=== PATIENT | male | born 1965 | race Caucasian/White ===

== ENCOUNTER 2018-09-14 15:00 | Outpatient (CLI) | payer OTHER | END 2018-09-14 15:13 | disposition home or self-care (01) | LOC: LAB 15:00 | DX: E78.49 Other hyperlipidemia (principal) ==

== ENCOUNTER → 2018-11-22 12:07 | Outpatient (CLI) | payer OTHER | END | disposition home or self-care (01) | LOC: LAB 11-21 19:55 | DX: I10 Essential (primary) hypertension (principal); E13.21 Other specified diabetes mellitus with diabetic nephropathy ==

== ENCOUNTER 2019-02-20 07:31 | Outpatient (CLI) | payer OTHER | END 2019-02-20 15:54 | disposition home or self-care (01) | LOC: LAB 07:31 | DX: I11.9 Hypertensive heart disease without heart failure (principal); E11.9 Type 2 diabetes mellitus without complications ==

== ENCOUNTER 2019-04-03 07:54 | Outpatient (CLI) | payer OTHER | END 2019-04-03 16:34 | disposition home or self-care (01) | LOC: LAB 07:54 | DX: I11.9 Hypertensive heart disease without heart failure (principal); R06.02 Shortness of breath; D50.8 Other iron deficiency anemias; E03.8 Other specified hypothyroidism; E78.2 Mixed hyperlipidemia; E56.8 Deficiency of other vitamins; N39.0 Urinary tract infection, site not specified; Z12.11 Encounter for screening for malignant neoplasm of colon; E55.9 Vitamin D deficiency, unspecified; N19 Unspecified kidney failure; E11.9 Type 2 diabetes mellitus without complications; R80.8 Other proteinuria; C18.0 Malignant neoplasm of cecum; K92.1 Melena ==

== ENCOUNTER 2019-08-06 09:10 | Outpatient (CLI) | payer OTHER | END 2019-08-06 14:35 | disposition home or self-care (01) | LOC: LAB 09:10 | DX: E13.69 Other specified diabetes mellitus with other specified complication (principal) ==

== ENCOUNTER 2020-01-15 08:08 | Outpatient (CLI) | payer OTHER | END 2020-01-15 09:29 | disposition home or self-care (01) | LOC: LAB 08:08 | DX: Z00.00 Encounter for general adult medical examination without abnormal findings (principal) ==

== ENCOUNTER 2020-03-25 08:05 | Outpatient (CLI) | payer OTHER | END 2020-03-25 13:39 | disposition home or self-care (01) | LOC: LAB 08:05 | PROVIDERS: ATTEND Anesthesiology | DX: E11.69 Type 2 diabetes mellitus with other specified complication (principal); Z13.89 Encounter for screening for other disorder ==

== ENCOUNTER 2020-07-01 15:54 | Outpatient (CLI) | payer OTHER | END 2020-07-01 15:55 | disposition home or self-care (01) | LOC: PPH VACUNA 15:54 | DX: Z23 Encounter for immunization (principal) ==

== ENCOUNTER → 2021-04-16 | Outpatient (CLI) | payer OTHER | END | disposition home or self-care (01) | LOC: LAB 10:48 | DX: Z20.828 Contact with and (suspected) exposure to other viral communicable diseases (principal) ==

== ENCOUNTER 2021-04-27 08:51 | Outpatient (CLI) | payer OTHER | END 2021-04-27 17:24 | disposition home or self-care (01) | LOC: LAB 08:51 | PROVIDERS: ATTEND Anesthesiology | DX: Z03.818 Encounter for observation for suspected exposure to other biological agents ruled out (principal) ==

== ENCOUNTER → 2021-05-02 11:25 | Outpatient (CLI) | payer OTHER | END | disposition home or self-care (01) | LOC: LAB 11:25 | PROVIDERS: ATTEND Anesthesiology | DX: Z03.818 Encounter for observation for suspected exposure to other biological agents ruled out (principal) ==

== ENCOUNTER 2021-06-16 08:00 | Outpatient (CLI) | payer OTHER | END 2021-06-16 08:30 | disposition home or self-care (01) | LOC: PPH VACUNA 08:00 | PROVIDERS: ATTEND Emergency Medicine Pediatric Emergency Medicine | DX: Z23 Encounter for immunization (principal) ==

== ENCOUNTER 2021-09-03 07:53 | Outpatient (CLI) | payer OTHER | END 2021-09-03 08:23 | disposition home or self-care (01) | LOC: LAB 07:53 | PROVIDERS: ATTEND Anesthesiology | DX: Z20.822 Contact with and (suspected) exposure to COVID-19 (principal) ==

== ENCOUNTER 2021-09-09 16:40 | Outpatient (CLI) | payer OTHER | END 2021-09-09 16:42 | disposition home or self-care (01) | LOC: LAB 16:40 | PROVIDERS: ATTEND Colon & Rectal Surgery | DX: Z20.822 Contact with and (suspected) exposure to COVID-19 (principal) ==

== ENCOUNTER 2021-09-12 10:33 | Outpatient (CLI) | payer OTHER | END 2021-09-12 10:50 | disposition home or self-care (01) | LOC: LAB 10:33 | PROVIDERS: ATTEND Colon & Rectal Surgery | DX: Z20.822 Contact with and (suspected) exposure to COVID-19 (principal) ==

== ENCOUNTER 2021-12-22 08:00 | Outpatient (CLI) | payer OTHER | END 2021-12-22 08:30 | disposition home or self-care (01) | LOC: PPH VACUNA 08:00 | PROVIDERS: ATTEND Emergency Medicine Pediatric Emergency Medicine | DX: Z23 Encounter for immunization (principal) ==

== ENCOUNTER 2022-05-25 08:00 | Outpatient (CLI) | payer OTHER | END 2022-05-25 08:05 | disposition home or self-care (01) | LOC: PPH VACUNA 08:00 | PROVIDERS: ATTEND Emergency Medicine Pediatric Emergency Medicine | DX: Z23 Encounter for immunization (principal) ==

== ENCOUNTER 2022-06-22 09:06 | Outpatient (CLI) | payer OTHER | END 2022-06-22 09:16 | disposition home or self-care (01) | LOC: PPH VACUNA 09:06 | PROVIDERS: ATTEND Emergency Medicine Pediatric Emergency Medicine | DX: Z23 Encounter for immunization (principal) ==

== ENCOUNTER 2022-10-25 08:19 | Outpatient (CLI) | payer OTHER | END 2022-10-25 08:27 | disposition home or self-care (01) | LOC: LAB 08:19 | PROVIDERS: ATTEND Anesthesiology | DX: R53.83 Other fatigue (principal); E78.5 Hyperlipidemia, unspecified; Z01.812 Encounter for preprocedural laboratory examination; E11.9 Type 2 diabetes mellitus without complications ==

== ENCOUNTER 2022-12-20 07:32 | Outpatient (CLI) | payer OTHER | END 2022-12-20 08:23 | disposition home or self-care (01) | LOC: LAB 07:32 | PROVIDERS: ATTEND Anesthesiology | DX: K74.00 Hepatic fibrosis, unspecified (principal); E11.9 Type 2 diabetes mellitus without complications ==

== ENCOUNTER 2022-12-27 07:38 | Outpatient (CLI) | payer OTHER | END 2022-12-27 08:03 | disposition home or self-care (01) | LOC: RAD 07:38 | PROVIDERS: ATTEND Anesthesiology | DX: S62.305D Unspecified fracture of fourth metacarpal bone, left hand, subsequent encounter for fracture with routine healing (principal) ==

== ENCOUNTER 2023-03-03 10:54 | Outpatient (CLI) | payer OTHER | END 2023-03-03 11:45 | disposition home or self-care (01) | LOC: LAB 10:54 | PROVIDERS: ATTEND Anesthesiology | DX: E08.9 Diabetes mellitus due to underlying condition without complications (principal); E78.5 Hyperlipidemia, unspecified; Z13.29 Encounter for screening for other suspected endocrine disorder; Z12.5 Encounter for screening for malignant neoplasm of prostate; Z13.0 Encounter for screening for diseases of the blood and blood-forming organs and certain disorders involving the immune mechanism ==

== ENCOUNTER 2023-03-07 09:50 | Outpatient (CLI) | payer OTHER | END 2023-03-07 09:58 | disposition home or self-care (01) | LOC: LAB 09:50 | DX: E11.9 Type 2 diabetes mellitus without complications (principal) ==

== ENCOUNTER 2023-05-16 08:20 | Outpatient (CLI) | payer OTHER | END 2023-05-16 14:20 | disposition home or self-care (01) | LOC: LAB 08:20 | PROVIDERS: ATTEND Anesthesiology | DX: E11.9 Type 2 diabetes mellitus without complications (principal) ==

== ENCOUNTER 2023-05-30 08:50 | Outpatient (CLI) | payer OTHER | END 2023-05-30 09:00 | disposition home or self-care (01) | LOC: PPH VACUNA 08:50 | PROVIDERS: ATTEND Emergency Medicine Pediatric Emergency Medicine | DX: Z23 Encounter for immunization (principal) ==

== ENCOUNTER 2023-11-11 09:19 | Outpatient (CLI) | payer OTHER | END 2023-11-11 09:34 | disposition home or self-care (01) | LOC: RAD 09:19 | PROVIDERS: ATTEND Anesthesiology Pain Medicine | DX: M48.02 Spinal stenosis, cervical region (principal); M54.6 Pain in thoracic spine ==

== ENCOUNTER 2023-12-08 08:33 | Outpatient (CLI) | payer OTHER ==
[2023-12-08 10:23] LABS: HEMATOCRIT 46.5 % (39.0-48.0); HEMOGLOBIN 16.1 g/dL (13-16.00); MEAN CELL VOLUME 86.1 fL (80.0-100.00); MEAN CORPUSCULAR HEMOGLOBIN 29.7 pg (27.00-32.0); MEAN CORPUSCULAR HGB CONC 34.5 g/dl (32.0-36.0); PLATELET COUNT 245 K/uL (150-450); RED CELL DISTRIBUTION WIDTH 13.7 % (11.5-14.5)
[2023-12-08 11:14] LABS: ALBUMIN 4.4 gm/dL (3.4-5.0); BILIRUBIN TOTAL 1.79 mg/dL (0.3-1.2); CALCIUM 9.4 mg/dL (8.5-10.1); CHOL HDL RATIO 2.5 (0-5.0); CREATININE SERUM 0.87 mg/dL (0.70-1.30); GFR 90.44; GLOBULINA 2.7 G/DL (2.4-3.5); POTASSIUM 3.98 mEq/L (3.5-5.1); TOTAL PROTEIN 7.1 gm/dL (6.4-8.2)
[2023-12-08 15:48] LABS: PROSTATIC SPECIFIC ANTIGEN 1.43 NG/ML (0.010-4.00); T4 TOTAL 12.18 UG/DL (4.5-12.1); TSH 1.54 uIU/mL (0.358-3.74)
== END 2023-12-08 14:19 | disposition home or self-care (01) ==
LOC: LAB 08:33
PROVIDERS: ATTEND Anesthesiology
DX: E11.11 Type 2 diabetes mellitus with ketoacidosis with coma (principal); Z01.89 Encounter for other specified special examinations

== ENCOUNTER 2024-06-21 11:50 | Outpatient (CLI) | payer OTHER | END 2024-06-21 12:00 | disposition home or self-care (01) | LOC: PPH VACUNA 11:50 | PROVIDERS: ATTEND Emergency Medicine Pediatric Emergency Medicine | DX: Z23 Encounter for immunization (principal) ==

== ENCOUNTER 2025-01-01 08:34 | Outpatient (CLI) | payer OTHER ==
[2025-01-01 09:50] LABS: PH,URINE 5.5 (5.0-8.0); URINE APPEARANCE Clear; URINE BILIRRUBIN Negative (NEGATIVE); URINE BLOOD Negative; URINE COLOR Yellow; URINE KETONE Negative (NEGATIVE); URINE LEUKOCYTE Negative; URINE NITRATE Negative; URINE PROTEIN Negative (NEGATIVE); URINE UROBILINOGEN 0.2 E.U./dl
[2025-01-01 09:51] LABS: URINE BACTERIA 4.8 uL (0.0-1933)
[2025-01-01 09:57] LABS: HEMATOCRIT 40.8 % (39.0-48.0); HEMOGLOBIN 14.3 g/dL (13-16.00); MEAN CELL VOLUME 87.7 fL (80.0-100.00); MEAN CORPUSCULAR HEMOGLOBIN 30.7 pg (27.00-32.0); PLATELET COUNT 248 K/uL (150-450); RED BLOOD COUNT 4.65 M/uL (4.00-6.00)
[2025-01-01 10:08] LABS: URINE CAST 0.14 uL (0.0-1.40); URINE EPITHELIAL CELLS 1.2 uL (0.0-38.8); URINE GLUCOSE >=1000 MG/DL (NEGATIVE); URINE RBC 1.3 uL (0.0-20.8); URINE WBC 0.6 uL (0.0-23.2)
[2025-01-01 10:38] LABS: ALBUMIN 4.1 gm/dL (3.4-5.0); BILIRUBIN TOTAL 2.01 mg/dL (0.3-1.2); BILIRUBIN,CONJUGATED 0.37 mg/dL (0.0-0.2); BILIRUBIN,UNCONJUGATED 1.64 mg/dL (0.0-0.6); CALCIUM 9.3 mg/dL (8.5-10.1); CHOL HDL RATIO 2.8 (0-5.0); CREATININE SERUM 0.91 mg/dL (0.70-1.30); GFR 85.57; GLOBULINA 2.7 G/DL (2.4-3.5); POTASSIUM 4.08 mEq/L (3.5-5.1); PROSTATIC SPECIFIC ANTIGEN 1.42 NG/ML (0.010-4.00); T4 TOTAL 8.14 UG/DL (4.5-12.1); TOTAL PROTEIN 6.8 gm/dL (6.4-8.2); TSH 1.54 uIU/mL (0.358-3.74)
== END 2025-01-01 15:10 | disposition home or self-care (01) ==
LOC: LAB 08:34
PROVIDERS: ATTEND Anesthesiology
DX: E11.9 Type 2 diabetes mellitus without complications (principal); Z01.89 Encounter for other specified special examinations